=== PATIENT | female | born 1980 | race Hispanic/Latino ===

== ENCOUNTER 2022-11-20 11:45 | Emergency (ER) | payer MEDICAID, SELFPAY ==
[2022-11-20 12:02] VITALS: BP 144/86; PULSE 59; RESP 20; TEMP 36.7; O2SAT 100
--- NOTE | 2022-11-20 12:17 | ED.HA ---
HPI - Headache General Chief Complaint: Unspecified Stated Complaint: Headache/Ears/Vomiting Time Seen by Provider: 11/20/22 12:02 Source: patient, RN notes reviewed and old records reviewed Mode of arrival: ambulatory Limitations: no limitations History of Present Illness HPI Narrative: 42-year-old female presents to the [facility] with complaints of headache, ears ringing, nausea since 0 300 this morning. Has a history of migraines. Took her propanolol and chlorthalidone prior to arrival. Denies any blurry vision or change in vision. Also reports urinary frequency Denies any fevers. No neck pain. No chest pain or shortness of breath. Related Data Home Medications Medication Instructions Recorded Confirmed chlorthalidone 25 mg tablet mg 11/20/22 citalopram 40 mg tablet mg 11/20/22 ferrous sulfate 325 mg (65 mg mg 11/20/22 iron) tablet (FeroSul) lovastatin 40 mg tablet mg 11/20/22 metformin 500 mg tablet,extended mg PO 11/20/22 release 24 hr omeprazole 40 mg capsule,delayed mg 11/20/22 release propranolol 160 mg capsule,24 mg PO 11/20/22 hr,extended release Allergies Allergy/AdvReac Type Severity Reaction Status Date / Time No Known Allergies Allergy Verified 11/20/22 12:03 Review of Systems Review of Systems: All systems reviewed & are unremarkable except as noted in HPI and below Constitutional: Constitutional: Reports no additional constitutional complaints Eyes: Eyes: Reports as per HPI ENT: Reports system reviewed and no additional complaints, except as documented Cardiovascular: Cardiovascular: Reports no additional cardiovascular complaints, Denies chest pain and Denies dyspnea Respiratory: Respiratory: Reports no additional respiratory complaints, Denies chest congestion, Denies cough and Denies dyspnea Gastrointestinal: Gastrointestinal: Reports no additional gastrointestinal complaints, Denies abdominal pain, Denies nausea and Denies vomiting Genitourinary: Genitourinary: Reports as per HPI Musculoskeletal: Musculoskeletal: Reports no additional musculoskeletal complaints Integumentary/Breasts: Skin/Breast: Reports system reviewed and no additional complaints, except as docu Neurologic: Reports as per HPI Psychiatric: Psychiatric: Reports no additional psychiatric complaints Allergic/Immunologic: Allergic/Immunologic: Reports no additional allergic/immunologic complaints PMFSH Comments At the time of my signature, I reviewed and agree with the nursing past medical, surgical, social, and family history. There is no relevant family history pertinent to the patient complaint. Exam Const: General: cooperative, healthy appearing, comfortable, no acute distress, well developed, alert and well nourished Nutritional Appearance: well nourished Orientation/consciousness: patient oriented x3 Limitations: no limitations HENMT: Head: normal to inspection Ears: hearing grossly normal bilaterally and external ears normal Face/Nose/Sinus: Normal external nose present, Normal nares present, Normal nasal mucous membranes and turbinates present and normal facial exam Face and sinus: normal facial exam Mouth: Yes Normal oral and palatal mucosa present, Yes lip normal and Yes moist mucous membranes Throat: posterior oropharynx normal and uvula midline Eyes: General: appearance normal, both eyes and all related structures Alignment and Position: alignment normal Periorbital: periorbital findings normal Conjunctivae: conjunctivae normal Pupils: Equal, round and reactive pupils present EOM: EOMs intact bilaterally Neck: Neck: normal visual inspection, full ROM, no lymphadenopathy and no meningeal signs Chest: Chest palpation & inspection: normal inspection of the chest Resp: Effort & Inspection: normal respiratory effort and able to speak in complete sentences Auscultation: clear to auscultation bilaterally, no crackles, no rales, no rhonchi and no wheezes Cardio: Rate: regular r
[2022-11-20] MEDS: ACETAMINOPHEN 500 MG TABLET 1000 MG PO (12:28)
[2022-11-20] MEDS: ONDANSETRON HCL ODT 4 MG TABLET SUBLINGUAL (12:28)
== END 2022-11-20 13:17 | disposition home or self-care (01) ==
PROVIDERS: Emergency Provider Nurse Practitioner; PCP Registered Nurse
DX: G43.909 Migraine, unspecified, not intractable, without status migrainosus (principal); Z20.822 Contact with and (suspected) exposure to COVID-19; E78.00 Pure hypercholesterolemia, unspecified; I10 Essential (primary) hypertension; K21.9 Gastro-esophageal reflux disease without esophagitis; E11.9 Type 2 diabetes mellitus without complications; Z85.3 Personal history of malignant neoplasm of breast
CPT/HCPCS: 81003; 81025; 87426; 87804; 99213; A9270; C9803; G0463